=== PATIENT | female | born 1960 | race Caucasian/White ===

== ENCOUNTER → 2024-07-01 | Outpatient (CLI) | payer OTHER, SELFPAY ==
--- NOTE | 2024-07-01 15:45 | CT_ITS ---
PROCEDURE: LOW DOSE CT LUNG SCREENING (CTLUNGSCREEN), 07/01/2024 REASON FOR EXAM: SMOKER TECHNIQUE: Low dose CT (LDCT) chest was performed without contrast. Multiplanar reformats and MIP reconstructions were generated. RADIATION DOSE SUMMARY: CTDlvol: 3.02 mGy DLP: 95.91 mGycm One or more dose reduction techniques were used (e.g., Automated exposure control, adjustment of the mA and/or kV according to patient size, use of iterative reconstruction technique). COMPARISON: None FINDINGS: Note that evaluation of the vasculature, terry, and soft tissues is limited in the absence of IV contrast. Heart/pericardium:Dense mitral annular calcification. Mild/moderate but multivessel coronary atherosclerosis and/or stents. Aorta: Mild calcific atherosclerosis.. Pulmonary arteries: Unremarkable. Lymph nodes: Precarinal node, subcarinal node, 14 mm short axis. 10 mm short axis. Additional prominent but nonenlarged mediastinal nodes. . Lungs/pleura: Mild focal subpleural cystic changes in the anterior bilateral upper lobes with mild adjacent reticulation/ground-glass. Minimal dependent reticulation/ground-glass greatest in the subpleural RIGHT lower lobe. 10 x 8 mm nodule in the subpleural RIGHT lower lobe, posterior costophrenic sulcus demonstrates a central calcification suggesting a reflects a calcifying granuloma (series 2 image 163). Additional granulomas. 3 mm subpleural LEFT upper lobe nodule (image 101). No architectural distortion or diya honeycombing. Airways: Unremarkable. No bronchiectasis. Chest wall: Small LEFT lobe thyroid nodules.. Upper abdomen: LEFT lobe hepatic cyst.. Musculoskeletal: Demineralization. Degenerative changes of the LEFT shoulder. Multilevel spondylosis. Mild scoliosis may be positional.. CT/Low Dose CT Lung Screening IMPRESSION: 1. Lung-RADS category: 2S (benign appearance or behavior, <1% chance of maligna ncy); continue annual screening with LDCT. 2. Other clinically significant or potentially significant non-lung cancer find ings: Present, as below: 3. Findings suggestive of a chronic interstitial abnormality. The appearance i s not typical of emphysema although there may be component of background emphysema. Consider pulmonology consultation. Pattern is most suggestive of an alternative diagnosis to UIP by ATS criteria. 4. Mild mediastinal lymphadenopathy, nonspecific and potentially reactive in th e absence of known malignancy. Correlate with medical history and follow-up as indicated. 5. Additional description as above. Recommendations per [employer]. Lung CT Screening Reporting and Data System (Lung-RADS) v. 2022 Reading Location: [id number]
== END | disposition home or self-care (01) ==
LOC: CT 15:39
PROVIDERS: PCP Family Medicine; Referring Provider Nurse Practitioner Acute Care; Visit Provider Nurse Practitioner Acute Care
DX: Z12.2 Encounter for screening for malignant neoplasm of respiratory organs (principal); F17.210 Nicotine dependence, cigarettes, uncomplicated
CPT/HCPCS: 71271

== ENCOUNTER → 2024-10-05 | Outpatient (CLI) | payer OTHER, SELFPAY ==
--- OUTSIDE RECORDS SUMMARY | 2024-10-05 07:22 | XMS RPT_ITS | CCD ---
Author Organization [facility] CliniSytn Care Team Providers Care Developer Programmer Analyst Name Role Phone HILLS, GEREMIAS Consulting Unavailable TROY, GEREMIAS Attending Unavailable TROY, GEREMIAS Admitting Unavailable TROY, GEREMIAS Primary Care Unavailable PROVIDER, UNKNOWN Consulting Unavailable TROY, GEREMIAS Primary Care Unavailable TROY, GEREMIAS Consulting Unavailable TROY, GEREMIAS Attending Unavailable TROY, GEREMIAS Admitting Unavailable PROVIDER, UNKNOWN Consulting Unavailable TROY, GEREMIAS Consulting Unavailable TROY, GEREMIAS Primary Care Unavailable TROY, GEREMIAS Attending Unavailable TROY, GEREMIAS Admitting Unavailable PROVIDER, UNKNOWN Consulting Unavailable TROY, GEREMIAS Consulting Unavailable TROY, GEREMIAS Attending Unavailable TROY, GEREMIAS Admitting Unavailable TROY, GEREMIAS Primary Care Unavailable PROVIDER, UNKNOWN Consulting Unavailable TROY, GEREMIAS Consulting Unavailable TROY, GEREMIAS Attending Unavailable TROY, GEREMIAS Admitting Unavailable TROY, GEREMIAS Primary Care Unavailable PROVIDER, UNKNOWN Consulting Unavailable TROY, GEREMIAS Attending Unavailable TROY, GEREMIAS Admitting Unavailable TROY, GEREMIAS Primary Care Unavailable TROY, GEREMIAS Consulting Unavailable PROVIDER, UNKNOWN Consulting Unavailable TROY, GEREMIAS Attending Unavailable TROY, GEREMIAS Admitting Unavailable TROY, GEREMIAS Primary Care Unavailable TROY, GEREMIAS Consulting Unavailable PROVIDER, UNKNOWN Consulting Unavailable Gilbert LACTATION SPECIALIST-C, Melina Attending Provider Mando PA-C, Geremias Primary Care Provider [phone] Montrose PA-C, Geremias Referring Provider Gilbert LACTATION SPECIALIST-C, Melina Referring Provider Gilbert LACTATION SPECIALIST, Melina Attending Unavailable Montrose PA, Geremias Referring Unavailable Montrose PA, Geremias Primary Care Unavailable Gilbert LACTATION SPECIALIST, Melina Referring Unavailable Gilbert LACTATION SPECIALIST, Melina Attending Unavailable Montrose PA, Geremias Primary Care Unavailable Gilbert LACTATION SPECIALIST, Melina Referring Unavailable Gilbert LACTATION SPECIALIST, Melina Attending Unavailable Montrose PA, Greemias Primary Care Unavailable Montrose Geremias LANGSTON Primary Care Unavailable Gilbert LACTATION SPECIALIST, Melina Attending Unavailable Montrose Geremias LANGSTON Referring Unavailable Medications Current Medications Medication Drug Class(es) Dates Sig (Normalized) Sig (Original) [id number] 200 actuat albuterol 0.09 mg/actuat metered dose inhaler (1 source) beta2-Adrenergic Agonist Start: 06-05-2024 Albuterol Sulfate (Ventolin Hfa) 90 mcg/actuation HFA aerosol inhaler Active 2 NMA INHALATION Q4H as needed for shortness of breath or wheezing June 05, 2024 12:00am alendronic acid 70 mg oral tablet (1 source) Bisphosphonate Start: 06-05-2024 take 1 tablet by mouth every week Alendronate 70 mg tablet Active 70 mg PO EVERY WEEK June 05, 2024 12:00am fexofenadine hydrochloride 180 mg oral tablet (1 source) Histamine-1 Receptor Antagonist Start: 06-05-2024 take 1 tablet by mouth every twenty-four hours Fexofenadine (Rossana Allergy) 180 mg tablet Active 180 mg PO Q24H June 05, 2024 12:00am fluticasone propionate 0.05 mg/actuat metered dose nasal spray (2 sources) Corticosteroid Start: 06-05-2024 End: 07-28-2024 Fluticasone Propionate 50 mcg/actuation spray,suspension Active 2 NMA INTRANASAL DAILY 16 July 28, 2024 1:41pm 12 hr guaiFENesin 1200 mg extended release oral tablet (1 source) Start: 07-28-2024 take 1 tablet by mouth every twelve hours Guaifenesin 1,200 mg tablet extended release 12hr Active 1200 mg PO Q12H 60 July 28, 2024 12:00am levothyroxine sodium 0.15 mg oral tablet (1 source) l-Thyroxine Start: 06-05-2024 take 1 tablet by mouth once daily Levothyroxine 150 mcg tablet Active 150 ug PO daily June 05, 2024 12:00am metroNIDAZOLE (1 source) Nitroimidazole Antimicrobial Start: 07-28-2024 Metronidazole 1 % gel Active TOPICAL daily July 28, 2024 12:00am Problems Problem Classification Problem Date Documented Da te Episodic/Chronic Asthma (1 source) Unspecified asthma, uncomplicated; Translations: [Unspecified asthma, uncomplicated] Onset: 07-28-2024 Chronic Disorders of lipid metabolism (2 sources) Hyperlipidemia, unspecified; Translations: [Hyperlipidemia, unspecified] Onset: 01-09-2024 Chronic Osteoporosis (1 source) Senile osteoporosis; Translations: [Age-related osteoporosis without current pathological fracture] 06-05-2024 Chronic Other lower respiratory disease (3 sources) Chronic cough; Translations: [Chronic cough] Onset: 07-28-2024 06-05-2024 Episodic Other lower respiratory disease (4 sources) Other nonspecific abnormal finding of lung field; Translations: [Ground glass opacity present on imaging of lung] Onset: 07-28-2024 07-28-2024 Episodic Other screening for suspected conditions (not mental disorders or infectious disease) (3 sources) Encounter for screening for diabetes mellitus; Translations: [Encounter for screening for malignant neoplasm of respiratory organs] Onset: 01-09-2024 Episodic Other upper respiratory disease (1 source) Seasonal allergy; Translations: [Other seasonal allergic rhinitis] 06-05-2024 Chronic Substance-related disorders (3 sources) Cigarette smoker ; Translations: [Nicotine dependence, cigarettes, uncomplicated] Onset: 06-11-2024 06-05-2024 Chronic Thyroid disorders (4 sources) Hypothyroidism, unspecified; Translations: [Hyperthyroidism] Onset: 03-14-2023 06-05-2024 Chronic Results Test Name Value Interpretation Reference Range Facility Pulmonary Visit Reporton Pulmonary Visit Report [facility] Pulmonary Medicine of [address] [place] [address] OFFICE VISIT Date of Service: 07/28/24 MR#: [id number] Acct: [id number] Name: SOURAV HALE Rep #: [id number] : 1960 Provider: VIET Hunt Age/Sex: 63/F Location: [facility].PMW Status: Signed Assessment and Plan Assessment and Plan (1) Ground glass opacity present on imaging of lung: Status: Acute Plan: LDCT showed a 1 cm area of groundglass opacity. There was some subsolid features. Also a 3 mm nodule noted. Possible interstitial lung disease. Ordering diagnostic CT of the chest in 6 months. Return to the office when test results are available for review. (2) Chronic cough: Status: Chronic Plan: NIOX procedure performed in the office today returned within normal limits. This indicates that the patient does not require the use of an inhaled corticosteroid, nor systemic corticosteroids. The patient has been asked to resume fluticasone. I explained that the Afrin she has been using can be harmful and addictive. She conveys understanding. Also placing her on Mucinex to aid in pulmonary toileting. If these 2 medications are not effective in helping to reduce the frequency of the coughing and the consistency of the mucus, the patient has been asked to call the office for an additional office visit. She conveys understanding and is agreeable with this plan. (3) Seasonal allergies: Status: Acute Plan: Deteriorated. Continue Rossana. If Mucinex and Flonase do not control symptoms consider adding Singulair. Orders: Orders NIOX Today R05.3 - Chronic cough Chest without Contrast 12/31/24 R91.8 - Other nonspecific abnormal finding of lung field Medications: New guaifenesin ER 1,200 mg PO Q12H 60 tabs 6RF R91.8 - Other nonspecific abnormal finding of lung field Refilled fluticasone propionate 50 mcg/actuation 2 sprays intranasal DAILY 16 grams 3RF J45.909 - Unspecified asthma, uncomplicated Plan Details Additional Comments: This note was generated with [employer] dictation software. It may contain incorrect words, spelling, and punctuation that were not noted in checking the note before signing. Follow Up: 01/18/25 HPI 1 M FU Chief Complaint: Test results HPI Comments Details: This patient presents to the office today to discuss test results. She is ambulatory and currently on room air. She has not recently been seen in the ED or urgent care for any respiratory illness. She has not required any antibiotics or prednisone for any breathing problems. She is a current smoker. She is smoking 1 pack/day. She previously followed with a hedge fund trader for nodules, however this last occurred back in 2013. She has utilized the albuterol rescue inhaler prescribed at her last office visit for cough. She admits that she did not find it to be very effective in reducing the frequency of her cough. She was utilizing fluticasone nasal spray as prescribed, and admits that while using it it seemed to be helpful. However, once that she completed the bottle she did not refill it. She has since noticed an increase in postnasal drainage and moist cough. She does have shortness of breath on exertion. She states that she is not sure why. She has a daily cough that is productive of clear-colored sputum. She reports that it is thick. She denies any hemoptysis. She denies any wheezing, chest tightness, chest pain or palpitations. She has not had any fever, chills or body aches. Test results personally viewed the patient: Low-dose CT lung screen completed on July 01, 2024. Minimal dependent reticular/groundglass greatest in the subpleural right lower lobe measuring 10 x 8 mm. Several calcified granulomas. 3 mm subpleural left upper lobe nodule. Recommendation is to continue screening with LDCT in 12 months. Intake Vital Signs 06/05/24 09:14 07/28/24 08:27 Height 5 ft 2 in 5 ft 2 in Weight: 160 lb 159 lb BMI 29.2 29.0 BP 155/85 H 139/82 H Blood Pressure Location Lt brachial Lt brachial Position Sitting Sitting Respiration 18 16 Pulse 89 94 Pulse Source Monitor NIBP Temp 97.5 F L 97.5 F L Temperature Source Temporal Artery Temporal Artery Pulse Oximetry (%) 96 98 Oxygen Delivery Method room air room air Intake Visit Reasons: 1 M FU Length Control Tester Required: No DME Vendor: N/a Accompanied by: Self Is patient in pain?: No Allergies No Known Allergies Allergy (Unverified 07/28/24 13:12) Medications ???Medication ???Instructions ???Recorded ???Confirmed ???Type albuterol sulfate 90 mcg/actuation 2 inh inhalation Q4H PRN shortne ss 06/05/24 07/28/24 Rx aerosol inhaler (Ventolin HFA) of breath or wheezing #18 grams alendronate 70 mg tablet 70 mg PO QWEEK 06/05/24 07/28/24 H istory fe (more content not included)... Normal [facility] Low Dose CT Lung Screeningon 07-01-[address] Lung Screening [facility] Imaging Services [address] [place], [place] [id number] Low Dose CT Lung Screening MR#: [id number] Acct: [id number] Name: ALEXIASOURAV KAUR TJ Rep #: [id number] : 1960 F 63 From: Jordan Guo MD PCP: Geremias Gilmore PA-C Status: [facility] CLI Study: Low Dose CT Lung Screening Date of Exam: 07/01 Exam# [id number] Ordering Dr: Melina Hunt LACTATION SPECIALIST LACTATION SPECIALIST-C PROCEDURE: LOW DOSE CT LUNG SCREENING (CTLUNGSCREEN), 07/01/2024 REASON FOR EXAM: SMOKER TECHNIQUE: Low dose CT (LDCT) chest was performed without contrast. Multiplanar reformats and MIP reconstructions were generated. RADIATION DOSE SUMMARY: CTDlvol: 3.02 mGy DLP: 95.91 mGycm One or more dose reduction techniques were used (e.g., Automated exposure control, adjustment of the mA and/or kV according to patient size, use of iterative reconstruction technique). COMPARISON: None FINDINGS: Note that evaluation of the vasculature, terry, and soft tissues is limited in the absence of IV contrast. Heart/pericardium:Den se mitral annular calcification. Mild/moderate but multivessel coronary atherosclerosis and/or stents. Aorta: Mild calcific atherosclerosis.. Pulmonary arteries: Unremarkable. Lymph nodes: Precarinal node, subcarinal node, 14 mm short axis. 10 mm short axis. Additional prominent but nonenlarged mediastinal nodes. . Lungs/pleura: Mild focal subpleural cystic changes in the anterior bilateral upper lobes with mild adjacent reticulation/ground-g lass. Minimal dependent reticulation/ground-g lass greatest in the subpleural RIGHT lower lobe. 10 x 8 mm nodule in the subpleural RIGHT lower lobe, posterior costophrenic sulcus demonstrates a central calcification suggesting a reflects a calcifying granuloma (series 2 image 163). Additional granulomas. 3 mm subpleural LEFT upper lobe nodule (image 101). No architectural distortion or diya honeycombing. Airways: Unremarkable. No bronchiectasis. Chest wall: Small LEFT lobe thyroid nodules.. Upper abdomen: LEFT lobe hepatic cyst.. Musculoskeletal: Demineralization. Degenerative changes of the LEFT shoulder. Multilevel spondylosis. Mild scoliosis may be positional.. CT/Low Dose CT Lung Screening IMPRESSION: 1. Lung-RADS category: 2S (benign appearance or behavior, <1% chance of malignancy); continue annual screening with LDCT. 2. Other clinically significant or potentially significant non-lung cancer findings: Present, as below: 3. Findings suggestive of a chronic interstitial abnormality. The appearance is not typical of emphysema although there may be component of background emphysema. Consider pulmonology consultation. Pattern is most suggestive of an alternative diagnosis to UIP by ATS criteria. 4. Mild mediastinal lymphadenopathy, nonspecific and potentially reactive in the absence of known malignancy. Correlate with medical history and follow-up as indicated. 5. Additional description as above. Recommendations per [employer]. Lung CT Screening Reporting and Data System (Lung-RADS) v. 2021 Reading Location: [id number] CC: VIET Hunt; ANGELA Gilmore Key Carrier: Signed Normal [facility] Pulmonary Visit Reporton Pulmonary Visit Report [facility] Pulmonary Medicine of [address] [place] [address] OFFICE VISIT Date of Service: 06/05/24 MR#: [id number] Acct: [id number] Name: SOURAV HALE Rep #: [id number] : 1960 Provider: VIET Hunt Age/Sex: 63/F Location: [facility].PMW Status: Signed Assessment and Plan Assessment and Plan (1) Chronic cough: Status: Chronic Plan: Of unclear etiology. NIOX procedure performed in the office today, returned within normal limits. This indicates that the patient does not require a steroid inhaler or systemic corticosteroids. She does report a postnasal drip, therefore we will try to control the postnasal drip with an fnii-iuq-cfleofl nasal steroid. I have asked her to hold off on the nasal decongestant she has been taking. Follow-up in 1 month to evaluate response. I have also provided her with an order for an albuterol rescue inhaler. I instructed her to utilize 2 puffs every 4-6 hours as needed for cough. When she returns to the office in 1 month we will evaluate how frequently she utilize the albuterol and if it was effective. (2) Smoking greater than 40 pack years: Status: Chronic Plan: Encourage complete smoking cessation. She is appropriate for LDCT. Ordered accordingly. Follow-up in 1 month to discuss test results. Orders: Orders Low Dose CT Lung Screening Today F17.200 - Nicotine dependence, unspecified, uncomplicated, F17.210 - Nicotine dependence, cigarettes, uncomplicated Medications: New albuterol sulfate 90 mcg/actuation (Ventolin HFA) 2 inhalations inhalation Q4H PRN 18 grams 11RF shortness of breath or wheezing fluticasone propionate 50 mcg/actuation 2 sprays intranasal DAILY 16 grams 3RF J45.909 - Unspecified asthma, uncomplicated Plan Details Follow Up: 1 Month HPI CHRONIC COUGH Chief Complaint: Cough HPI Comments Details: This patient presents to the office today for initial consultation regarding concern for chronic cough. She is ambulatory and currently on room air. The patient reports that she has dealt with a chronic cough for several years. She states that the cough occurs daily and is moist sounding. It is often productive of thick clear sputum. It does not seem to be different according to seasons. She does believe that it is aggravated by humid weather. She reports using cough drops constantly but is not sure if they are helpful. She has shortness of breath on exertion. She has chronic nasal congestion, for which she uses a nightly nasal decongestant spray. She has never been prescribed an albuterol rescue inhaler. She denies any difficulty with wheezing, chest tightness, chest pain or palpitations. She has not had any fever, chills or body aches. She is a current smoker. She is smoking 1 pack/day. She previously followed with a hedge fund trader for nodules, however this last occurred back in 2013. Pulmonary function test completed at [facility] in March was normal. 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 Past medical family history significant for: Mother is currently living at the age of 85 and has leukemia. Father in 2016 due to kidney cancer. She has 4 sisters, all have good health. She has 3 sons, the oldest son had a myocardial infarction at a young age. The other 2 sons have good health. Intake Vital Signs 06/05/24 09:14 Height 5 ft 2 in Weight: 160 lb BMI 29.2 BP 155/85 H Blood Pressure Location Lt brachial Position Sitting Respiration 18 Pulse 89 Pulse Source Monitor Temp 97.5 F L Temperature Source Temporal Artery Pulse Oximetry (%) 96 Oxygen Delivery Method room air Intake Visit Reasons: CHRONIC COUGH Length Control Tester Required: No Accompanied by: Self Allergies No Known Allergies Allergy (Unverified 06/05/24 09:20) Medications ???Medication ???Instructions ???Recorded ???Confirmed ???Type albuterol sulfate 90 mcg/actuation 2 inh inhalation Q4H PRN shortne ss 06/05/24 06/05/24 Rx aerosol inhaler (Ventolin HFA) of breath or wheezing #18 grams alendronate 70 mg tablet 70 mg PO QWEEK 06/05/24 06/05/24 H istory fexofenadine 180 mg tablet 180 mg PO Q24H 06/05/24 06/05/24 H istory (Rossana Allergy) fluticasone propionate 50 2 spray intranasal DAILY #16 grams 06/05/24 06/05/24 Rx mcg/actuation nasal spray,suspension levothyroxine 150 mcg tablet 150 mcg PO QDAY 06/05/24 06/05/24 History PFSH Medical History (Updated 06/05/24 @ 09:47 by Melina Hunt LACTATION SPECIALIST, LACTATION SPECIALIST-C) Age related osteoporosis Hyperthyroidism Seasonal allergies Surgical History (Updated 06/05/24 @ 09:22 by Shanon Quiles LPN) H/O tubal ligation Family History (Updated 06/05/24 @ 09:24 by Shanon Quiles LPN) Mother Leukemia Fat (more content not included)... Normal [facility] PULMONARY FUNCTION STUDYon 0 03-22-2024 PULMONARY FUNCTION STUDY [facility] PULMONARY FUNCTION TEST NAME ACCOUNT SEX AGE VISIT DATE ROOM PT MEDICAL REC. # NUMBER TYPE SOURAV HALE [id number] F 63 03/05/2024 2 70090 DATE OF : 1960 DICTATING PHYSICIAN: Jeb Berrios The FEV1 is 2.46 liters or 109% of predicted with a ratio of 83%. Total lung capacity is normal. The RV/TLC ratio and diffusion capacity are normal. IMPRESSION: This is a normal study. There is no evidence of obstruction or restriction or airway reactivity. Dictated By: Jeb Berrios MD 03/11/24 13:22 JOB #: [id number] Transcribed By: am 03/11/24 13:34 Electronically signed by: Iva Berrios M.D. 03/22/24 22:21 SOURAV HALE Page 1 of 1 Normal [facility] CMP with eGFRon 01-24-2024 AGE 63 years Normal [facility] Comment on above: Performed By: #### 2 06623 #### [facility],[address] [place] [address] 23525 Albumin [Mass/Vol] 4.1 g/dL Normal 3.4 - 5.0 [facility] Comment on above: Performed By: #### 2 26052 #### [facility],[address] [place] [address] 63747 Albumin/Globulin [Mass ratio] 1.2 {ratio} Normal 0.9 - 1.6 [facility] Comment on above: Performed By: #### 2 26644 #### [facility],[address] [place] [address] 23211 ALK PHOS 92 U/L Normal 46 - 116 [facility] Comment on above: Performed By: #### 2 48601 #### [facility],[address] [place] [address] 05026 ALT [Catalytic activity/Vol] 17 U/L Normal 16 - 63 [facility] Comment on above: Performed By: #### 2 90869 #### [facility],[address] [place] [address] 28331 Anion gap [Moles/Vol] 12 mmol/L Normal 10 - 20 [facility] Comment on above: Performed By: #### 2 05966 #### [facility],[address] [place] [address] 23345 AST [Catalytic activity/Vol] 21 U/L Normal 13 - 39 [facility] Comment on above: Performed By: #### 2 98224 #### [facility],[address] [place] [address] 03296 B/C RATIO 18 ratio Normal 0 - 30 [facility] Comment on above: Performed By: #### 2 51183 #### [facility],[address] [place] [address] 45737 Bilirubin [Mass/Vol] 0.4 mg/dL Normal 0.2 - 1.0 [facility] Comment on above: Performed By: #### 2 91838 #### [facility],[address] [place] [address] 78134 Calcium [Mass/Vol] 9.2 mg/dL Normal 8.5 - 10.1 [facility] Comment on above: Performed By: #### 2 69846 #### [facility],[address] [place] [address] 61468 Chloride [Moles/Vol] 100 mmol/L Normal 98 - 107 [facility] Comment on above: Performed By: #### 2 98797 #### [facility],[address] [place] [address] 09586 CMP with eGFR Normal [facility] Comment on above: Result Comment: COMP REHENSIVE METABOLIC PANEL Performed By: #### 2 11901 #### [facility],[address] [place] [address] 24749 CO2 [Moles/Vol] 29.5 mmol/L Normal 21.0 - 32.0 [facility] Comment on above: Performed By: #### 2 06313 #### [facility],[address] [place] [address] 84197 Creatinine [Mass/Vol] 0.67 mg/dL Normal 0.55 - 1.02 [facility] Comment on above: Performed By: #### 2 95766 #### [facility],[address] [place] [address] 11493 GFR/1.73 sq M.predicted among non-blacks MDRD (S/P/Bld) [Vol rate/Area] mL/min/{1.73_m2} Normal 60 - 999 [facility] Comment on above: Performed By: #### 2 70669 #### [facility],[address] [place] [address] 96200 Result Comment: ACCO RDING TO THE NATIONAL KIDNEY DISEASE EDUCATION PROGRAM(NKDE), A NORMAL eGFR IS A VALUE GREATER THAN OR EQUAL TO 60 ML/MIN/1.73 SQ METERS. CHRONIC KIDNEY DISEASE: <60mL/MIN/1.73 SQ METERS KIDNEY FAILURE: <15mL/MIN/1.73 SQ METERS THIS TEST SHOULD ONLY BE USED FOR PATIENTS 18 YEARS OF AGE AND OLDER. Globulin (S) [Mass/Vol] 3.3 g/dL Normal 1.5 - 3.8 [facility] Comment on above: Performed By: #### 2 72315 #### [facility],[address] [place] [address] 12367 Glucose [Mass/Vol] 100 mg/dL Normal 74 - 106 [facility] Comment on above: Performed By: #### 2 08077 #### [address] [address] Potassium [Moles/Vol] 4.1 mmol/L Normal 3.5 - 5.1 [facility] Comment on above: Performed By: #### 2 08504 #### [facility],[address] [place] [address] 44783 Protein [Mass/Vol] 7.4 g/dL Normal 6.4 - 8.2 [facility] Comment on above: Performed By: #### 2 84297 #### [facility],[address] [place] [address] 25295 Sodium [Moles/Vol] 137 mmol/L Normal 136 - 145 [facility] Comment on above: Performed By: #### 2 93492 #### [facility],[address] [place] [address] 42647 Urea nitrogen [Mass/Vol] 12 mg/dL Normal 7 - 18 [facility] Comment on above: Performed By: #### 2 81097 #### [address] [address] LIPID PROFILEon 01-24-2024 Cholesterol [Mass/Vol] 244 mg/dL High 0 - 240 [facility] Comment on above: Performed By: #### 2 60028 #### [facility],[address] [place] [address] 51181 Cholesterol in HDL [Mass/Vol] 58 mg/dL Normal 40 - 60 [facility] Comment on above: Performed By: #### 2 94912 #### [facility],[address] [place] [address] 98382 Cholesterol in LDL [Mass/Vol] 169 mg/dL High 0 - 129 [facility] Comment on above: Performed By: #### 2 53319 #### [facility],[address] [place] [address] 62868 Cholesterol.total/C holesterol in HDL [Mass ratio] 4.2 {ratio} Normal 0.0 - 5.0 [facility] Comment on above: Performed By: #### 2 91447 #### [facility],[address] [place] [address] 94006 Lipid 1996 panel Normal [facility] Comment on above: Result Comment: LIPI D PROFILE Performed By: #### 2 71999 #### [facility],[address] [place] [address] 70598 Triglyceride [Mass/Vol] 87 mg/dL Normal 0 - 150 [facility] Comment on above: Performed By: #### 2 34561 #### [facility],[address] [place] [address] 62408 TSHon 01-24-2024 TSH Qn 2.86 m[IU]/L Normal 0.35 - 3.74 [facility] Comment on above: Performed By: #### 2 66441 #### [facility],[address] [place] [address] 13822 3D MAMM BILAT SCREENon 01-08 3D MAMM BILAT SCREEN [place] [address] Patient: SOURAV HALE Phone#: : 1960 Age: 63 Gender: F Pt. Type: Out Account: [id number] Location: 052 Ordering: [place] Exam Date: 01/09/2024/11:56 Family Phys: Charge Code: [id number] Physician: [place] Order #: [id number] Dose#: PROCEDURE: BILATERAL SCREENING BREAST TOMOSYNTHESIS MAMMOGRAM WITH CAD COMPARISON: [facility], 3D BILAT SCREEN, 06/07/2021, 15:04. [facility], 3D BILAT SCREEN, 06/29/2022, 15:02. INDICATIONS: Screening. BREAST COMPOSITION: Heterogeneously dense, which may obscure small masses. FINDINGS: DIAGNOSTIC CATEGORY 1--NEGATIVE NO CHANGE FROM COMPARISON ASSESSMENT. RIGHT BREAST: No significant suspicious finding. Scattered benign-appearing calcifications are present. No significant change has occurred. LEFT BREAST: No significant suspicious finding. Scattered benign-appearing calcifications are present. No significant change has occurred. RECOMMENDATIONS: ROUTINE MAMMOGRAM AND CLINICAL EVALUATION IN 12 MONTHS. PLEASE NOTE: A NORMAL MAMMOGRAM DOES NOT EXCLUDE THE POSSIBILITY OF BREAST CANCER. A CLINICALLY SUSPICIOUS PALPABLE LUMP SHOULD BE BIOPSIED. THIS FACILITY UTILIZES A REMINDER SYSTEM TO ENSURE THAT ALL PATIENTS RECEIVE REMINDER LETTERS FOR APPOINTMENTS. THIS INCLUDES REMINDERS FOR ROUTINE MAMMOGRAMS, DIAGNOSITC MAMMOGRAMS, OR OTHER BREAST IMAGING INTERVENTIONS WHEN APPROPRIATE. THIS PATIENT WILL BE PLACED IN THE APPROPRIATE REMINDER SYSTEM. Dictated by: Whit Lawton MD on 01/09/2024 at 17:30 Approved by: Whit Lawton MD on 01/09/2024 at 17:38 Normal [facility] BONE DENSITY STUDYon 024 Bone density scan [place] [address] Patient: SOURAV HALE Phone#: : 1960 Age: 63 Gender: F Pt. Type: Out Account: [id number] Location: 052 Ordering: [place]EMI[place] Exam Date: 01/09/2024/12:07 Family Phys: Charge Code: [id number] Physician: [place] Order #: [id number] Dose#: PROCEDURE: BONE DENSITY STUDY TECHNIQUE: Lumbar vertebral and proximal femoral dual-energy X-ray absorptiometry (DXA) was performed on a central RocketBux device. SPINE ANALYSIS RESULTS: Average lumbar bone mineral density (BMD) (g/cm2): 0.790 Lumbar T-score (standard deviation relative to young adult mean BMD): -3.3 Lumbar Z-score (standard deviation relative to age matched control group): -2.1 SPINE CLASSIFICATION: Osteoporosis (T-score < -2.5). HIP ANALYSIS RESULTS: Left femoral bone mineral density (BMD) (g/cm2): 0.801 Right femoral bone mineral density (BMD) (g/cm2): 0.780 Femur T-score (standard deviation relative to young adult mean BMD): -1.7 Femur Z-score (standard deviation relative to age matched control group): -0.8 HIP CLASSIFICATION (World Health Organization): Osteopenia (T-score -1.0 to -2.5). Note: The 2007 International Society for Clinical Densitometry (ISCD) Official Positions state that osteoporosis in lucius-menopausal and post-menopausal women and in men age 50 and older may be diagnosed if the T-score of the lumbar spine, total hip, or femoral neck is -2.5 or less. Hip BMD is reported from the femoral neck or total proximal femur whichever is lowest. In pre-menopausal women and in men younger than age 50, T-scores may be used but Z-scores are preferred. In this patient group, a Z-score of -2.0 or lower is defined as below the expected range for age. FRAX is a computer-based algorithm which uses easily obtained clinical risk factors combined with femoral neck BMD or T-score to estimate an individual 10-year fracture probability. FRAX with BMD predicts fracture risk better than clinical risk factors or BMD alone. It is not appropriate to use FRAX to monitor treatment response. ADDITIONAL FINDINGS: FRAX: 10 year probability of fracture Major osteoporotic fracture: 19.1% Hip fracture: 5.0% Dictated by: Lyndsay Mccann MD on 01/09/2024 at 13:07 Continued Report - Page 2 of 2 Patient: SOURAV HALE Phone#: : 1960 Age: 63 Gender: F Pt. Type: Out Account: [id number] Location: 2 Ordering: [place]EREMI[place] Exam Date: 01/09/2024/12:07 Family Phys: Charge Code: [id number] Physician: [place] Order #: [id number] Dose#: Approved by: Lyndsay Mccann MD on 01/09/2024 at 13:08 Normal [facility] Comprehensive metabolic 2000 panelon 11-28-2021 Albumin [Mass/Vol] 4.4 g/dL Normal 3.9-4.9 [facility] Comment on above: Order Comment: Speci men Type: BLOOD SPECIMEN Ordering Facility: [facility] Address: [address] [place] [address] Performed By: #### 2 4323-8 #### [facility] CLIA [id number] [address] [place] [address] [place] ALP [Catalytic activity/Vol] 90 U/L Normal 34-123 [facility] Comment on above: Order Comment: Speci men Type: BLOOD SPECIMEN Ordering Facility: [facility] Address: [address] [place] [address] Performed By: #### 2 4323-8 #### [facility] CLIA [id number] [address] [place] [address] [place] ALT [Catalytic activity/Vol] 17 U/L Normal 7-38 [facility] Comment on above: Order Comment: Speci men Type: BLOOD SPECIMEN Ordering Facility: [facility] Address: [address] [place] [address] Performed By: #### 2 4323-8 #### [facility] CLIA [id number] [address] [place] [address] [place] Anion gap [Moles/Vol] 16 mmol/L Normal 9-18 [facility] Comment on above: Order Comment: Speci men Type: BLOOD SPECIMEN Ordering Facility: [facility] Address: [address] [place] [address] Performed By: #### 2 4323-8 #### [facility] CLIA [id number] [address] [address] [place] AST [Catalytic activity/Vol] 19 U/L Normal 13-35 [facility] Comment on above: Order Comment: Speci men Type: BLOOD SPECIMEN Ordering Facility: [facility] Address: [address] [place] [address] Performed By: #### 2 4323-8 #### [facility] CLIA [id number] [address] [place] [address] [place] Bilirubin [Mass/Vol] 0.4 mg/dL Normal 0.2-1.3 [facility] Comment on above: Order Comment: Speci men Type: BLOOD SPECIMEN Ordering Facility: [facility] Address: [address] [place] [address] Performed By: #### 2 4323-8 #### [facility] CLIA [id number] [address] [place] [address] [place] Calcium [Mass/Vol] 9.2 mg/dL Normal 8.5-10.2 [facility] Comment on above: Order Comment: Speci men Type: BLOOD SPECIMEN Ordering Facility: [facility] Address: [address] [place] [address] Performed By: #### 2 4323-8 #### [facility] CLIA [id number] [address] [place] [id number] [place] Chloride [Moles/Vol] 99 mmol/L Normal 97-105 [facility] Comment on above: Order Comment: Speci men Type: BLOOD SPECIMEN Ordering Facility: [facility] Address: [address] [place] [address] Performed By: #### 2 4323-8 #### [facility] CLIA [id number] [address] [address] [place] CO2 [Moles/Vol] 22 mmol/L Normal 22-30 [facility] Comment on above: Order Comment: Speci men Type: BLOOD SPECIMEN Ordering Facility: [facility] Address: [address] [place] [address] Performed By: #### 2 4323-8 #### [facility] CLIA [id number] [address] [place] [address] [place] Creatinine [Mass/Vol] 0.62 mg/dL Normal 0.58-0.96 [facility] Comment on above: Order Comment: Speci men Type: BLOOD SPECIMEN Ordering Facility: [facility] Address: [address] [place] [address] Performed By: #### 2 4323-8 #### [facility] CLIA [id number] [facility] [place] [address] [place] ESTIMATED GLOMERULAR FILTRATION RATE 102 mL/min/1.73m??? Normal >=60 [facility] Comment on above: Order Comment: Speci men Type: BLOOD SPECIMEN Ordering Facility: [facility] Address: [address] [place], [place] [address] Result Comment: Aurea mated Glomerular Filtration Rate (eGFR) is calculated using the 2020 CKD-EPI creatinine equation. This equation utilizes serum creatinine, sex, and age as parameters. The creatinine assay has traceable calibration to isotope dilution-mass spectrometry. Refer to KDIGO guidelines for clinical interpretation. In patients with unstable renal function, e.g. those with acute kidney injury, the eGFR may not accurately reflect actual GFR. Performed By: #### 2 4323-8 #### [facility] CLIA [id number] [facility] [place] [address] [place] Glucose [Mass/Vol] 99 mg/dL Normal 74-99 [facility] Comment on above: Order Comment: Speci men Type: BLOOD SPECIMEN Ordering Facility: [facility] Address: [address] [place] [address] Result Comment: The [place] Diabetes Association (ADA) provides guidance for cutoff values for fasting glucose and random glucose. The ADA defines fasting as no caloric intake for at least 8 hours. Fasting plasma glucose results between 100 to 125 mg/dL indicate increased risk for diabetes (prediabetes). Fasting plasma glucose results greater than or equal to 126 mg/dL meet the criteria for diagnosis of diabetes. In the absence of unequivocal hyperglycemia, results should be confirmed by repeat testing. In a patient with classic symptoms of hyperglycemia or hyperglycemic crisis, random plasma glucose results greater than or equal to 200 mg/dL meet the criteria for diagnosis of diabetes. Reference: Standards of Medical Care in Diabetes 2016, [place] Diabetes Association. Diabetes Care. 2016.39(Suppl 1). Performed By: #### 2 4323-8 #### [facility] CLIA [id number] [address] [place] [address] [place] Potassium [Moles/Vol] 4.0 mmol/L Normal 3.7-5.1 [facility] Comment on above: Order Comment: Shandra avery Type: BLOOD SPECIMEN Ordering Facility: [facility] Address: [address] [place] [address] Performed By: #### 2 4323-8 #### [facility] CLIA [id number] [address] [place] [address] [place] Protein [Mass/Vol] 6.8 g/dL Normal 6.3-8.0 [facility] Comment on above: Order Comment: Shandra avery Type: BLOOD SPECIMEN Ordering Facility: [facility] Address: [address] [place] [address] Performed By: #### 2 4323-8 #### [facility] CLIA [id number] [address] [place] [address] [place] Sodium [Moles/Vol] 137 mmol/L Normal 136-144 [facility] Comment on above: Order Comment: Shandra avery Type: BLOOD SPECIMEN Ordering Facility: [facility] Address: [address] [place] [address] Performed By: #### 2 4323-8 #### [facility] CLIA [id number] [address] [place] [address] [place] Urea nitrogen [Mass/Vol] 9 mg/dL Normal 7-21 [facility] Comment on above: Order Comment: Speci men Type: BLOOD SPECIMEN Ordering Facility: [facility] Address: [address] [place] [address] Performed By: #### 2 4323-8 #### [facility] CLIA [id number] [facility] [place] [address] [place] [employer] [facility] Reporton 2021 [employer] [facility] Report . Pathology Reports Accession: Collected Date/Time: Received Date/Time: Pathologist: [id number] 06/05/2021 16:02 EDT 06/05/2021 18:00 EDT [employer] [facility] Report SPECIMEN: Specimen Description: Liquid Prep w/ HPV Specimen: Cervical Screening or Diagnostic: Screening RELEVANT HISTORY: LMP: NOT GIVEN [id number] SPECIMEN ADEQUACY: SATISFACTORY FOR EVALUATION ENDOCERVICAL/TRANSFOR MATIONAL ZONE COMPONENT PRESENT INTERPRETATION/RESULT S: NEGATIVE FOR INTRAEPITHELIAL LESION OR MALIGNANCY HIGH RISK HPV TESTING: High Risk HPV Typing: Negative HPV Types 16, 18, 31, 33, 35, 39, 45, 51, 52, 56, 58, 59, 66 and 68 DNA were undetectable or be low the pre-set threshold. The michaela High-Risk HPV DNA Test is not intended for use as a screening device for Pap normal women under age 30 and is not intended to substitute for regular Pap screening. The michaela High-Risk HPV DNA Test is designed to augment existing methods for the detection of cervical disease and should be used in conjunction with clinical information derived from [facility] diagnostic and screening tests, physical examinations and full medical history in accordance with appropriate patient management procedures. NOTE: A negative result does not preclude the presence of HPV infection because results depend on adequate specimen collection, absence of inhibitors and sufficient DNA to be detected. COMMENT: This Pap Test was successfully processed and evaluated with the assistance of the [employer] Prep Test Imaging System. Electronically Signed by Pathology report verified by [facility] Screened by: [place] Electronically signed by Urszula HOPKINS (ASCP) Sign-Out Date: 06/09/2021 15:18 Performing Lab: [facility], [address] [place] [address] [place] Disclaimer The Pap test is a screening test for cervical cancer. As evidenced by published data, it is sub ject to both inherent false negative and false positive results. Your patient's results should be interpreted in context with pertinent clinical history including gynecological examination. Normal [facility] ([place]) HPVon 06-09-2021 HPV Interp Normal See Interp HPVN [facility] ([place]) Comment on above: Order Comment: Order placed by AP_HPV_ORDER rule from [id number] Result Comment: High Risk HPV Typing: NEGATIVE HPV types 16, 18, 31, 33, 35, 39, 45, 51, 52, 56, 58, 59, 66 and 68 DNA were undetectable or below the pre-set threshold. The michaela High-Risk HPV DNA Test is not intended for use as a screening device for Pap normal women under age 30 and is not intended to substitute for regular Pap screening. The michaela High-Risk HPV DNA Test is designed to augment existing methods for the detection of cervical disease and should be used in conjunction with clinical information derived from other diagnostic and screening tests, physical examinations and full medical history in accordance with appropriate patient management procedures. NOTE: A negative result does not preclude the presence of HPV infection because results depend on adequate specimen collection, absence of inhibitors and sufficient DNA to be detected. See Interp HPVN Performed By: #### H PV #### [place] [address] HPV Source Cervix Normal [facility] ([place]) Comment on above: Order Comment: Order placed by AP_HPV_ORDER rule from [id number] Performed By: #### H PV #### [place] [id number] TSHon 10-05-2020 TSH Qn 0.21 m[IU]/L Low 0.40-4.50 [facility] Comment on above: Performed By: #### 8 99 #### [facility] [address], [address] [place] [id number] Test Lead Application Testing: Chadd Vargas MD Vital Signs Date Time Vital Sign Value Performing Clinician Reymundo estrada 07-28-2024 08:27-0400 [facility] 07-28-2024 08:27-0400 Body mass index (BMI) [Ratio] 29 kg/m2 Geremias J C Lads PA-C Work Phone: [facility] 07-28-2024 08:27-0400 Body temperature 97.5 [degF] Geremias Montrose PA-C Work Phone: [facility] 07-28-2024 08:27-0400 Body weight 72.12 kg Geremias J C Lads PA-C Work Phone: [facility] 07-28-2024 08:27-0400 Diastolic blood pressure 82 mm[Hg] Geremias J C Lads PA-C Work Phone: [facility] 07-28-2024 08:27-0400 Heart rate 94 /min Geremias J C Lads PA-C Work Phone: [facility] 07-28-2024 08:27-0400 Respiratory rate 16 /min Geremias J C Lads PA-C Work Phone: [facility] 07-28-2024 08:27-0400 SaO2% (BldA) [Mass fraction] 98 % Geremias J C Lads PA-C Work Phone: [facility] 07-28-2024 08:27-0400 Systolic blood pressure 139 mm[Hg] Geremias J C Lads PA-C Work Phone: [facility] 06-05-2024 09:14-0400 Body mass index (BMI) [Ratio] 29.2 kg/m2 Geremias J C Lads PA-C Work Phone: [facility] 06-05-2024 09:14-0400 Body temperature 97.5 [degF] Geremias J C Lads PA-C Work Phone: [facility] 06-05-2024 09:14-0400 Body weight 72.57 kg Geremias J C Lads PA-C Work Phone: [facility] 06-05-2024 09:14-0400 Diastolic blood pressure 85 mm[Hg] Geremias J C Lads PA-C Work Phone: [facility] 06-05-2024 09:14-0400 Heart rate 89 /min Geremias Hills PA-C Work Phone: [facility] 06-05-2024 09:14-0400 [facility] 18 [facility] 06-05-2024 09:14-0400 SaO2% (BldA) [Mass fraction] 96 % Geremias Montrose PA-C Work Phone: [facility] 06-05-2024 09:14-0400 Systolic blood pressure 155 mm[Hg] [facility] PA-C Work Phone: [facility] Encounters Encounter Date Encounter Type Care Provider Facility Start: 10-05-2024 ambulatory Melina Hunt LACTATION SPECIALIST Fac ility:[facility] Start: 07-28-2024 End: 07-28-2024 Patient encounter procedure Melina Hunt LACTATION SPECIALIST-C -[facility] Work Phone: Start: 07-28-2024 End: 07-28-2024 ambulatory Scandid PA-C Work Phone: [facility] Work Phone: Start: 07-01-2024 End: 07-01-2024 Patient encounter procedure Melina Hunt NP-C -[facility] Work Phone: Start: 07-01-2024 End: 07-01-2024 ambulatory Melina Hunt LACTATION SPECIALIST Facility:[facility] Start: 06-05-2024 End: 06-05-2024 Patient encounter procedure Melina Hunt LACTATION SPECIALIST-C -[facility] Work Phone: Start: 06-05-2024 End: 06-05-2024 ambulatory Geremias Montrose PA Facility:[facility] Start: 03-05-2024 End: 03-05-2024 ambulatory [facility] Start: 01-24-2024 End: 01-24-2024 ambulatory [facility] Start: 01-09-2024 End: 01-09-2024 ambulatory [facility] Start: 03-14-2023 End: 03-14-2023 ambulatory [facility] Start: 01-28-2023 End: 01-28-2023 [facility] Procedures Date Procedure Procedure Detail Performing Clinician Start: 07-01-2024 CT of chest Geremias pandya PA-C Work Phone: Plan of Treatment Date Care Activity Detail Author CT Chest WO contrast [facility] Payers Date Payer Category Payer Unknown [id number] 2024 Self-pay 2024 Unknown [id number] 1960 Unknown [id number] 2.16.8 [id number] 1960 Unknown [id number] 2.16.8 [id number] 1960 Unknown [id number] 2.16.8 [id number] 1960 Unknown [id number] 2.16.8 [id number] 1960 Unknown [id number] 2.16.8 [id number] 1960 Unknown [id number] 2.16.8 [id number] 1960 Unknown [id number] 2.16.8 [id number] Unknown Unknown [id number] 2.16.8 [id number] Unknown [id number] 2.16.8 [id number] Unknown [id number] 2.16.8 [id number] Unknown [id number] 2.16.8 [id number] Social History Date Type Detail Facility Start: [facility]-05-[facility] Start: 1960 Sex Assigned At Female [facility] Gender Identity Identifies as fe male gender (finding) [facility] Evaluation note 06-05-2024 Note Date & Type Note Facility 06-05-2024 Evaluation note Diagnosis Onset Date Resolution Chronic cough chronic June 05, 2024 9:13am Smoking greater than 40 pack years chronic June 05, 2024 9:13am Ground glass opacity present on imaging of lung acute July 28, 2024 1 :07pm [facility] [employer] [facility] Work Phone: Reason for referral (narrative) Note Date & Type Note Facility Reason for referral (narrative) No reason for referral information available [facility] Work Phone: Summary Purpose Family History No Family History Records Found Relationship Condition Age at Onset Recorded Date/T james mother Leukemia Unknown father Malignant neoplasm of kidney Unknown Advance Directives No Advanced Directives Records FoundNo Advanced Directives Records FoundNo Advanced Directives Records FoundNo Advanced Directives Records FoundNo Advanced Directives Records FoundNo Advanced Directives Records Found Chief Complaint and Reason for Visit Chief Complaint Admit Date CHRONIC COUGH June 05, 2024 9:13 am SMOKER July 01, 2024 3:3 2pm 1 M FU July 28, 2024 1:07p m Reason for Visit Admit Date Chronic cough June 05, 2024 9:13 am Smoking greater than 40 pack years June 05, 2024 9:13am Ground glass opacity present on imaging of lung July 28, 2024 1:07pm Additional Source Comments INFORMATION SOURCE (unrecogn ized section and content) DATE CREATED AUTHOR 01/01/2021 [facility] DATE CREATED AUTHOR AUTHOR'S ORGANIZ ATION 06/12/2021 [facility] ([place]) DATE CREATED AUTHOR AUTHOR'S ORGANIZ ATION 12/04/2021 [facility] DATE CREATED AUTHOR AUTHOR[facility]S OR[facility]IZ ATION [facility] DATE CREATED AUTHOR AUTHOR'S ORGANIZ ATION [facility] DATE CREATED AUTHOR AUTHOR'S ORGANIZ ATION 10/03/2024 [facility] Care Teams (unrecognized sec tion and content) Team Status: Active Member Role Status Dates Geremias Gilmore PA, PA-C Primary Care Provider Active Team Status: Inactive Member Role Status Dates Melina Hunt NP LACTATION SPECIALIST-C Attending Provider Active Start: June 05, 2024 End: June 05, 2024 Geremias Gilmore PA, PA-C Primary Care Provider Active Start: June 05, 2024 End: June 05, 2024 Geremias Gilmore PA, PA-C Referring Provider Active Start: June 05, 2024 End: June 05, 2024 Team Status: Inactive Member Role Status Dates Geremias Gilmore PA, PA-C Primary Care Provider Active Start: July 01, 2024 End: July 01, 2024 Melina Hunt NP, LACTATION SPECIALIST-C Attending Provider Active Start: July 01, 2024 End: July 01, 2024 Melina Hunt NP, LACTATION SPECIALIST-C Referring Provider Active Start: July 01, 2024 End: July 01, 2024 Team Status: Inactive Member Role Status Dates Geremias Mando PA, PA-C Primary Care Provider Active Start: July 28, 2024 End: July 28, 2024 Geremias Gilmore PA, PA-C Referring Provider Active Start: July 28, 2024 End: July 28, 2024 Melina Hunt NP, LACTATION SPECIALIST-C Attending Provider Active Start: July 28, 2024 End: July 28, 2024 Goals (unrecognized section and content) Goals may be documented in a n alternate section FOR RECORDS PERTAINING TO PATIENTS WHO ARE OR HAVE BEEN ENROLLED IN A CHEMICAL DEPENDENCY/SUBSTANCEABUSE PROGRAM, SOME INFORMATION MAY BE OMITTED. This clinical summary was aggregated from multiple sources. Caution should be exercised in using it in the provision of clinical care. This summary normalizes information from multiple sources, and as a consequence, information in this document may materially change the coding, format and clinical context of patient data. In addition, data may be omitted in some cases. CLINICAL DECISIONS SHOULD BE BASED ON THE PRIMARY CLINICAL RECORDS. [facility] [employer] provides no warranty or guarantee of the accuracy or completeness of information in this document.
--- NOTE | 2024-10-05 07:24 | CT_ITS ---
PROCEDURE: CHEST WITHOUT CONTRAST 10/05/2024 REASON FOR EXAM: GROUND GLASS Patient has a 1 year history of cough and shortness of breath. TECHNIQUE: Chest CT without contrast. Coronal and Sagittal reconstruction series were provided. One or more dose reduction techniques were used (e.g., Automated exposure control, adjustment of the mA and/or kV according to patient size, use of iterative reconstruction technique RADIATION DOSE SUMMARY: CTDlvol: 8.06 mGy DLP: 276.04 mGycm COMPARISON: Prior study dated July 01, 2024. FINDINGS: Hardware: None Lymph nodes: Small benign-appearing bilateral axillary lymph nodes. Heart and Vasculature: Atherosclerotic calcification of the aortic arch. The heart is nonenlarged. Coronary Artery Calcifications: Present Lungs and Airways: Minimal increased linear markings at the lung bases suggestive of scarring. Subpleural blebs are seen in the anterior aspect of both upper lobes suggestive of scarring. No focal infiltrate is seen. Calcified granuloma in the right lower lobe. Pleura: No pleural effusion. Upper Abdomen: Stable cyst in the left lobe of the liver. Bones: Degenerative changes of the thoracic spine. CT/Chest without Contrast IMPRESSION: Coronary artery calcification (CAC) is is present Scarring as described. Stable small mediastinal and axillary lymph nodes. Reading Location: [facility]
== END | disposition home or self-care (01) ==
PROVIDERS: PCP Family Medicine; Referring Provider Nurse Practitioner Acute Care; Visit Provider Nurse Practitioner Acute Care
DX: R91.8 Other nonspecific abnormal finding of lung field (principal)
CPT/HCPCS: 71250

== ENCOUNTER → 2025-01-18 | Outpatient (CLI) | payer OTHER, SELFPAY ==
[2025-01-18 07:53] LABS: Hematocrit 45.4 % (37-47); Hemoglobin 15.2 g/dL (12.0-15.0); Immature Granulocytes Count 0.060 X10^3/uL (0.0-0.0); Mean Corp Hgb Conc 33.5 g/dL (32-36); Mean Corpuscular Volume 87.0 fL (81-99); Mean Platelet Vol. 10.9 fl (6.2-12.0); NRBC Flagged by Analyzer 0 % (0-5); Platelet Count 292 K/mm3 (150-450); RBC Distribution Width CV 13.1 % (11.6-14.6); RBC Distribution Width SD 41.7 fl (35.1-43.9); Red Blood Count 5.22 M/mm3 (4.2-5.4); White Blood Count 8.9 K/mm3 (4.4-11.0)
--- OUTSIDE RECORDS SUMMARY | 2025-01-18 07:56 | XMS RPT_ITS | CCD ---
Author Organization [facility] Care Team Providers Care Rehab Services Aide Name Role Phone HILLS, GEREMIAS Consulting Unavailable CROPSEYVILLE, GEREMIAS Attending Unavailable CROPSEYVILLE, GEREMIAS Admitting Unavailable CROPSEYVILLE, GEREMIAS Primary Care Unavailable PROVIDER, UNKNOWN Consulting Unavailable HILLS, GEREMIAS Primary Care Unavailable CROPSEYVILLE, GEREMIAS Consulting Unavailable CROPSEYVILLE, GEREMIAS Attending Unavailable CROPSEYVIL[place], GEREMIAS Admitting Unavailable PROVIDER, UNKNOWN Consulting Unavailable CROPSEYVIL[place], GEREMIAS Consulting Unavailable CROPSEYVIL[place], GEREMIAS Primary Care Unavailable CROPSEYVILLE, GEREMIAS Attending Unavailable CROPSEYVILLE, GEREMIAS Admitting Unavailable PROVIDER, UNKNOWN Consulting Unavailable HILLS, GEREMIAS Consulting Unavailable HILLS, GEREMIAS Attending Unavailable HILLS, GEREMIAS Admitting Unavailable CROPSEYVILLE, GEREMIAS Primary Care Unavailable PROVIDER, UNKNOWN Consulting Unavailable HILLS, GEREMIAS Consulting Unavailable CROPSEYVIL[place], GEREMIAS Attending Unavailable HILLS, GEREMIAS Admitting Unavailable HILLS, GEREIMAS Primary Care Unavailable PROVIDER, UNKNOWN Consulting Unavailable HILLS, GEREMIAS Attending Unavailable HILLS, GEREMIAS Admitting Unavailable HILLS, GEREMIAS Primary Care Unavailable HILLS, GEREMIAS Consulting Unavailable PROVIDER, UNKNOWN Consulting Unavailable CROPSEYVILLE, GEREMIAS Attending Unavailable CROPSEYVIL[place], GEREMIAS Admitting Unavailable HILLS, GEREMIAS Primary Care Unavailable HILLS, GEREMIAS Consulting Unavailable PROVIDER, UNKNOWN Consulting Unavailable Gilbert DRUPAL ARCHITECT-C, Melina Attending Provider Mando PA-C, Geremias Primary Care Provider [phone] Mando PA-C, Geremias Referring Provider Gilbert DRUPAL ARCHITECT-CMelina Referring Provider Mando PA-C, Geremias Primary Care Provider [phone] Gilbert DRUPAL ARCHITECT-C, Melina Attending Provider Mando PA-C, Geremias Referring Provider Arimo PA, Geremias Referring Unavailable [facility] Unavailable Gilbert DRUPAL ARCHITECT, Melina Attending Unavailable [facility] Unavailable Gilbert DRUPAL ARCHITECT, Melina Attending Unavailable Gilbert DRUPAL ARCHITECT, Melnia Referring Unavailable [facility] Unavailable Gilbert DRUPAL ARCHITECT, Melina Attending Unavailable Gilbert DRUPAL ARCHITECT, Melina Referring Unavailable [facility] Unavailable [facility] Referring Unavailable Gilbert DRUPAL ARCHITECT, Melina Attending Unavailable [facility] Unavailable [facility] Referring Unavailable Gilbert DRUPAL ARCHITECT, Melina Attending Unavailable Medications Current Medications Medication Drug Class(es) Dates Sig (Normalized) Sig (Original) [id number] 200 actuat albuterol 0.09 mg/actuat metered dose inhaler (2 sources) beta2-Adrenergic Agonist Start: 06-05-2024 Albuterol Sulfate (Ventolin Hfa) 90 mcg/actuation HFA aerosol inhaler Active 2 NMA INHALATION Q4H as needed for shortness of breath or wheezing 18 11 June 05, 2024 12:00am alendronic acid 70 mg oral tablet (2 sources) Bisphosphonate Start: 06-05-2024 take 1 tablet by mouth every week Alendronate 70 mg tablet Active 70 mg PO EVERY WEEK June 05, 2024 12:00am fexofenadine hydrochloride 180 mg oral tablet (2 sources) Histamine-1 Receptor Antagonist Start: 06-05-2024 take 1 tablet by mouth every twenty-four hours Fexofenadine (Rossana Allergy) 180 mg tablet Active 180 mg PO Q24H June 05, 2024 12:00am fluticasone propionate 0.05 mg/actuat metered dose nasal spray (4 sources) Corticosteroid Start: 06-05-2024 End: 07-28-2024 Fluticasone Propionate 50 mcg/actuation spray,suspension Active 2 NMA INTRANASAL DAILY 16 3 July 28, 2024 1:41pm Asthma Unspecified asthma, uncomplicated 12 hr guaiFENesin 1200 mg extended release oral tablet (2 sources) Start: 07-28-2024 take 1 tablet by mouth every twelve hours Guaifenesin 1,200 mg tablet extended release 12hr Active 1200 mg PO Q12H 60 6 July 28, 2024 12:00am Ground glass opacity present on imaging of lung Other nonspecific abnormal finding of lung field levothyroxine sodium 0.15 mg oral tablet (2 sources) l-Thyroxine Start: 06-05-2024 take 1 tablet by mouth once daily Levothyroxine 150 mcg tablet Active 150 ug PO daily June 05, 2024 12:00am metroNIDAZOLE (2 sources) Nitroimidazole Antimicrobial Start: 07-28-2024 Metronidazole 1 % gel Active TOPICAL daily July 28, 2024 12:00am Problems Active Problems Problem Classification Problem Date Documented Da te Episodic/Chronic Asthma (1 source) Unspecified asthma, uncomplicated; Translations: [Unspecified asthma, uncomplicated] Onset: 07-28-2024 Chronic Disorders of lipid metabolism (2 sources) Hyperlipidemia, unspecified; Translations: [Hyperlipidemia, unspecified] Onset: 01-09-2024 Chronic Osteoporosis (2 sources) Senile osteoporosis; Translations: [Age-related osteoporosis without current pathological fracture] 06-05-2024 Chronic Other lower respiratory disease (5 sources) Other nonspecific abnormal finding of lung field; Translations: [Ground glass opacity present on imaging of lung] Onset: 10-12-2024 07-28-2024 Episodic Other upper respiratory disease (3 sources) Seasonal allergy; Translations: [Other seasonal allergic rhinitis] 06-05-2024 Chronic Substance-related disorders (4 sources) Cigarette smoker ; Translations: [Nicotine dependence, cigarettes, uncomplicated] Onset: 06-11-2024 06-05-2024 Chronic Thyroid disorders (5 sources) Hypothyroidism, unspecified; Translations: [Hyperthyroidism] Onset: 03-14-2023 06-05-2024 Chronic Past or Other Problems Problem Classification Problem Date Documented Da te Episodic/Chronic Other lower respiratory disease (5 sources) Chronic cough; Translations: [Chronic cough] Onset: 07-28-2024 06-05-2024 Episodic Other screening for suspected conditions (not mental disorders or infectious disease) (3 sources) Encounter for screening for diabetes mellitus; Translations: [Encounter for screening for malignant neoplasm of respiratory organs] Onset: 01-09-2024 Episodic Results Test Name Value Interpretation Reference Range Facility Chest without Contraston Chest without Contrast [facility] Imaging Services [address] [place] [address] Chest without Contrast MR#: [id number] Acct: [id number] Name: SOURAV HALE Rep #: [id number] : 1960 F 64 From: Ever banuelos MD PCP: Geremias Gilmore PA-C Status: REG CLI Study: Chest without Contrast Date of Exam: 10/05/24 Exam# [id number] Ordering Dr: Melina Hunt NP PROCEDURE: CHEST WITHOUT CONTRAST 10/05/2024 REASON FOR EXAM: GROUND GLASS Patient has a 1 year history of cough and shortness of breath. TECHNIQUE: Chest CT without contrast. Coronal and Sagittal reconstruction series were provided. One or more dose reduction techniques were used (e.g., Automated exposure control, adjustment of the mA and/or kV according to patient size, use of iterative reconstruction technique RADIATION DOSE SUMMARY: CTDlvol: 8.06 mGy DLP: 276.04 mGycm COMPARISON: Prior study dated July 01, 2024. FINDINGS: Hardware: None Lymph nodes: Small benign-appearing bilateral axillary lymph nodes. Heart and Vasculature: Atherosclerotic calcification of the aortic arch. The heart is nonenlarged. Coronary Artery Calcifications: Present Lungs and Airways: Minimal increased linear markings at the lung bases suggestive of scarring. Subpleural blebs are seen in the anterior aspect of both upper lobes suggestive of scarring. No focal infiltrate is seen. Calcified granuloma in the right lower lobe. Pleura: No pleural effusion. Upper Abdomen: Stable cyst in the left lobe of the liver. Bones: Degenerative changes of the thoracic spine. CT/Chest without Contrast IMPRESSION: Coronary artery calcification (CAC) is is present Scarring as described. Stable small mediastinal and axillary lymph nodes. Reading Location: [id number] CC: VIET Hunt; ANGELA Gilmore Greenhouse Technician: Signed Normal [facility] Pulmonary Visit Reporton Pulmonary Visit Report [facility] Pulmonary Medicine of [address] [place] [address] OFFICE VISIT Date of Service: 07/28/24 MR#: [id number] Acct: [id number] Name: SOURAV HALE Rep #: [id number] : 1960 Provider: VIET Hunt Age/Sex: 63/F Location[place] [facility] [place] Status: Signed Assessment and Plan Assessment and [...] Additional Comments: This note was generated with [employer] dictation software. It may contain incorrect words, [...] 1 pack/day. She previously followed with a cooker sulfite for nodules, however this last occurred back [...] air Intake Visit Reasons: 1 M FU [employer] Required: No DME Vendor: N/a Accompanied by: [...] istory fe (more content not included)... Normal [facility] Low Dose CT Lung Screeningon 07-01-[address] Lung Screening [facility] Imaging Services [address] [place] [place], [place] [address] Low Dose CT Lung Screening MR#: [id number] Acct: [id number] Name: SOURAV HALE Rep #: [id number] : 1960 F 63 From: Jordan Gou MD PCP: Geremias Gilmore PA-C Status: REG CLI Study: Low Dose CT Lung Screening Date of Exam: 07/01 Exam# [id number] Ordering Dr: Melina Hunt NP DRUPAL ARCHITECT-C PROCEDURE: LOW DOSE CT LUNG SCREENING (CTLUNGSCREEN), [...] 5. Additional description as above. Recommendations per [employer]. Lung CT Screening Reporting and Data System (Lung-RADS) v. 2021 Reading Location: [id number] CC: VIET Hunt; ANGELA Gilmore Greenhouse Technician: Signed Normal [facility] Pulmonary Visit Reporton Pulmonary Visit Report [facility] Pulmonary Medicine of [address] [place] [address] OFFICE VISIT Date of Service: 06/05/24 MR#: [id number] Acct: [id number] Name: SOURAV HALE Rep #: [id number] : 1960 Provider: VIET Hunt Age/Sex: 63/F Location: [facility] [place]W Status: Signed Assessment and Plan Assessment and Plan (1) Chronic cough: Status: Chronic Plan: Of unclear etiology. NIOX procedure performed in the office today, returned within normal limits. This indicates that the patient does not require a steroid inhaler or systemic corticosteroids. She does report a postnasal drip, therefore we will try to control the postnasal drip with an fldh-xys-rjngbxt nasal steroid. I have asked her to [...] 1 pack/day. She previously followed with a cooker sulfite for nodules, however this last occurred back in 2013. Pulmonary function test completed at [facility] in March was normal. 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 Past medical family history significant for: Mother is currently living at the age of 85 and has leukemia. Father in 2015 due to kidney cancer. She has 4 [...] room air Intake Visit Reasons: CHRONIC COUGH [employer] Required: No Accompanied by: Self Allergies No [...] (Updated 06/05/24 @ 09:47 by Melina Hunt DRUPAL ARCHITECT, DRUPAL ARCHITECT-C) Age related osteoporosis Hyperthyroidism Seasonal allergies Surgical History (Updated 06/05/24 @ 09:22 by Shanon Quiles LPN) H/O tubal ligation Family History (Updated 06/05/24 @ 09:24 by Shanon Quiles LPN) Mother Leukemia Fat (more content not included)... Normal [facility] PULMONARY FUNCTION STUDYon 0 03-22-2024 PULMONARY FUNCTION STUDY [facility] PULMONARY FUNCTION TEST NAME ACCOUNT SEX AGE VISIT DATE ROOM PT MEDICAL REC. # NUMBER TYPE SOURAV HALE [id number] F 63 03/05/2024 2 03645 DATE OF : 1960 DICTATING PHYSICIAN: Jeb Berrios The FEV1 is 2.46 liters or 109% of predicted with a ratio of 83%. Total lung capacity is normal. The RV/TLC ratio and diffusion capacity are normal. IMPRESSION: This is a normal study. There is no evidence of obstruction or restriction or airway reactivity. Dictated By: Jeb Berrios MD 03/11/24 13:22 JOB #: [id number] Transcribed By: am 03/11/24 13:34 Electronically signed by: Iva Berrios M.D. 03/22/24 22:21 SOURAV HALE Page 1 of 1 Normal [facility] CMP with eGFRon 01-24-2024 AGE 63 years Normal [facility] Comment on above: Performed By: #### 2 17419 #### [address] [address] Albumin [Mass/Vol] 4.1 g/dL Normal 3.4 - 5.0 [facility] Comment on above: Performed By: #### 2 66740 #### [facility],[address] [place] [address] Albumin/Globulin [Mass ratio] 1.2 {ratio} Normal 0.9 - 1.6 [facility] Comment on above: Performed By: #### 2 30081 #### [address] [address] ALK PHOS 92 U/L Normal 46 - 116 [facility] Comment on above: Performed By: #### 2 88261 #### [facility],[address] [place] [address] ALT [Catalytic activity/Vol] 17 U/L Normal 16 - 63 [facility] Comment on above: Performed By: #### 2 68523 #### [address] [address] Anion gap [Moles/Vol] 12 mmol/L Normal 10 - 20 [facility] Comment on above: Performed By: #### 2 80291 #### [address] [address] AST [Catalytic activity/Vol] 21 U/L Normal 13 - 39 [facility] Comment on above: Performed By: #### 2 62824 #### [facility],[address] [place], [place] [address] B/C RATIO 18 ratio Normal 0 - 30 [facility] Comment on above: Performed By: #### 2 25467 #### [facility],[address] [place] [address] Bilirubin [Mass/Vol] 0.4 mg/dL Normal 0.2 - 1.0 [facility] Comment on above: Performed By: #### 2 07703 #### [facility],[address] [place], [place] [address] Calcium [Mass/Vol] 9.2 mg/dL Normal 8.5 - 10.1 [facility] Comment on above: Performed By: #### 2 75850 #### [facility],[address] [place], [place] [address] Chloride [Moles/Vol] 100 mmol/L Normal 98 - 107 [facility] Comment on above: Performed By: #### 2 81949 #### [facility],[address] [place] [address] CMP with eGFR Normal [facility] Comment on above: Result Comment: COMP REHENSIVE METABOLIC PANEL Performed By: #### 2 69870 #### [facility],[address] [place] [address] CO2 [Moles/Vol] 29.5 mmol/L Normal 21.0 - 32.0 [facility] Comment on above: Performed By: #### 2 64424 #### [facility],[address] [place] [address] Creatinine [Mass/Vol] 0.67 mg/dL Normal 0.55 - 1.02 [facility] Comment on above: Performed By: #### 2 40330 #### [facility],[address] [place] [address] GFR/1.73 sq M.predicted among non-blacks MDRD (S/P/Bld) [Vol rate/Area] mL/min/{1.73_m2} Normal 60 - 999 [facility] Comment on above: Performed By: #### 2 37609 #### [facility],[address] [place] [address] Result Comment: ACCO RDING TO THE NATIONAL KIDNEY DISEASE EDUCATION PROGRAM(NKDE), A NORMAL eGFR IS A VALUE GREATER THAN OR EQUAL TO 60 ML/MIN/1.73 SQ METERS. CHRONIC KIDNEY DISEASE: <60mL/MIN/1.73 SQ METERS KIDNEY FAILURE: <15mL/MIN/1.73 SQ METERS THIS TEST SHOULD ONLY BE USED FOR PATIENTS 18 YEARS OF AGE AND OLDER. Globulin (S) [Mass/Vol] 3.3 g/dL Normal 1.5 - 3.8 [facility] Comment on above: Performed By: #### 2 65726 #### [facility],[address] [place] [address] Glucose [Mass/Vol] 100 mg/dL Normal 74 - 106 [facility] Comment on above: Performed By: #### 2 20567 #### [facility],[address] [place] [address] Potassium [Moles/Vol] 4.1 mmol/L Normal 3.5 - 5.1 [facility] Comment on above: Performed By: #### 2 33818 #### [facility],[address] [place] [address] Protein [Mass/Vol] 7.4 g/dL Normal 6.4 - 8.2 [facility] Comment on above: Performed By: #### 2 57913 #### [facility],[address] [place] [address] Sodium [Moles/Vol] 137 mmol/L Normal 136 - 145 [facility] Comment on above: Performed By: #### 2 58727 #### [facility] [place] [address] Urea nitrogen [Mass/Vol] 12 mg/dL Normal 7 - 18 [facility] Comment on above: Performed By: #### 2 85389 #### [facility],[address] [place] [address] LIPID PROFILEon 01-24-2024 Cholesterol [Mass/Vol] 244 mg/dL High 0 - 240 [facility] Comment on above: Performed By: #### 2 66275 #### [facility],[address] [place] [address] Cholesterol in HDL [Mass/Vol] 58 mg/dL Normal 40 - 60 [facility] Comment on above: Performed By: #### 2 38506 #### [facility],[address] [place] [address] Cholesterol in LDL [Mass/Vol] 169 mg/dL High 0 - 129 [facility] Comment on above: Performed By: #### 2 95012 #### [facility],[address] [place] [address] Cholesterol.total/C holesterol in HDL [Mass ratio] 4.2 {ratio} Normal 0.0 - 5.0 [facility] Comment on above: Performed By: #### 2 54611 #### [facility],[address] [place] [address] Lipid 1996 panel Normal [facility] Comment on above: Result Comment: LIPI D PROFILE Performed By: #### 2 56779 #### [facility],[address] [place] [address] Triglyceride [Mass/Vol] 87 mg/dL Normal 0 - 150 [facility] Comment on above: Performed By: #### 2 31668 #### [facility],[address] [place] [address] TSHon 01-24-2024 TSH Qn 2.86 m[IU]/L Normal 0.35 - 3.74 [facility] Comment on above: Performed By: #### 2 24470 #### [facility],[address] [place], [place] [address] 3D MAMM BILAT SCREENon 01-08 3D MAMM BILAT SCREEN [place] [id number] Patient: SOURAV HALE Phone#: : 1960 Age: 63 Gender: F Pt. Type: Out Account: [id number] Location: [facility] Ordering: [facility] Exam Date: 01/09/2024/11:56 Family Phys: Charge Code: [id number] Physician: Metcalfe Order #: [id number] Dose#: PROCEDURE: BILATERAL SCREENING BREAST TOMOSYNTHESIS MAMMOGRAM WITH CAD COMPARISON: [facility], 3D BILAT SCREEN, 06/07/2021, 15:04. [facility], 3D BILAT SCREEN, 06/29/2022, 15:02. INDICATIONS: Screening. [...] Lawton MD on 01/09/2024 at 17:38 Normal [facility] BONE DENSITY STUDYon 024 Bone density scan [place] [address] Patient: SOURAV HALE Phone#: : 1960 Age: 63 Gender: F Pt. Type: Out Account: [id number] Location: [facility] Ordering: [employer] Exam Date: 01/09/2024/12:07 Family Phys: Charge Code: [id number] Physician: Metcalfe Order #: [id number] Dose#: PROCEDURE: BONE DENSITY STUDY TECHNIQUE: Lumbar vertebral and proximal femoral dual-energy X-ray absorptiometry (DXA) was performed on a central Marquee device. SPINE ANALYSIS RESULTS: Average lumbar bone [...] 63 Gender: F Pt. Type: Out Account: [id number] Location: [facility] Exam Date: 01/09/2024/12:07 Family Phys: Charge Code: [id number] Physician: Metcalfe Order #: [id number] Dose#: Approved by: Lyndsay Mccann MD on 01/09/2024 at 13:08 Normal [facility] Comprehensive metabolic 2000 panelon 11-28-2021 Albumin [Mass/Vol] 4.4 g/dL Normal 3.9-4.9 [facility] Comment on above: Order Comment: Shandra avery Type: BLOOD SPECIMEN Ordering Facility: [facility] Address: [address] [place] [address] Performed By: #### 2 4323-8 #### [facility] CLIA [id number] [address] [place] [address] [place] ALP [Catalytic activity/Vol] 90 U/L Normal 34-123 [facility] Comment on above: Order Comment: Shandra avery Type: BLOOD SPECIMEN Ordering Facility: [facility] Address: [address] [place] [address] Performed By: #### 2 4323-8 #### [facility] CLIA [id number] [address] [place] [address] [place] ALT [Catalytic activity/Vol] 17 U/L Normal 7-38 [facility] Comment on above: Order Comment: Shandra avery Type: BLOOD SPECIMEN Ordering Facility: [facility] Address: [address] [place] [address] Performed By: #### 2 4323-8 #### [facility] CLIA [id number] [address] [place] [id number] [place] Anion gap [Moles/Vol] 16 mmol/L Normal 9-18 [facility] Comment on above: Order Comment: Speci men Type: BLOOD SPECIMEN Ordering Facility: [facility] Address: [address] [place] [address] Performed By: #### 2 4323-8 #### [facility] CLIA [id number] [address] [place] [address] [place] AST [Catalytic activity/Vol] 19 U/L Normal 13-35 [facility] Comment on above: Order Comment: Speci men Type: BLOOD SPECIMEN Ordering Facility: [facility] Address: [address] [place] [address] Performed By: #### 2 4323-8 #### [facility] CLIA [id number] [address] [place] [address] [place] Bilirubin [Mass/Vol] 0.4 mg/dL Normal 0.2-1.3 [facility] Comment on above: Order Comment: Speci men Type: BLOOD SPECIMEN Ordering Facility: [facility] Address: [address] [place] [address] Performed By: #### 2 4323-8 #### [facility] CLIA [id number] [address] [place] [address] [place] Calcium [Mass/Vol] 9.2 mg/dL Normal 8.5-10.2 [facility] Comment on above: Order Comment: Speci men Type: BLOOD SPECIMEN Ordering Facility: [facility] Address: [address] [place] [address] Performed By: #### 2 4323-8 #### [facility] CLIA [id number] [address] [place] [id number] [place] Chloride [Moles/Vol] 99 mmol/L Normal 97-105 [facility] Comment on above: Order Comment: Speci men Type: BLOOD SPECIMEN Ordering Facility: [facility] Address: [address] [place] [address] Performed By: #### 2 4323-8 #### [facility] CLIA [id number] [address] [place] [address] [place] CO2 [Moles/Vol] 22 mmol/L Normal 22-30 [facility] Comment on above: Order Comment: Speci men Type: BLOOD SPECIMEN Ordering Facility: [facility] Address: [address] [place] [address] Performed By: #### 2 4323-8 #### [facility] CLIA [id number] [address] [place] [address] [place] Creatinine [Mass/Vol] 0.62 mg/dL Normal 0.58-0.96 [facility] Comment on above: Order Comment: Speci men Type: BLOOD SPECIMEN Ordering Facility: [facility] [place] [address] Performed By: #### 2 4323-8 #### [facility] CLIA [id number] [address] [place] [address] [place] ESTIMATED GLOMERULAR FILTRATION RATE 102 mL/min/1.73m??? Normal >=60 [facility] Comment on above: Order Comment: Speci men Type: BLOOD SPECIMEN Ordering Facility: [facility] Address: [address] [place] [address] Result Comment: Aurea mated Glomerular Filtration Rate [...] GFR. Performed By: #### 2 4323-8 #### [facility] CLIA [id number] [address] [place] [address] [place] Glucose [Mass/Vol] 99 mg/dL Normal 74-99 [facility] Comment on above: Order Comment: Shandra avery Type: BLOOD SPECIMEN Ordering Facility: [facility] Address: [facility] [place] [address] Result Comment: The [place] [employer] (ADA) provides guidance for cutoff [...] Standards of Medical Care in Diabetes 2016, [place] [employer]. Diabetes Care. 2016.39(Suppl 1). Performed By: #### 2 4323-8 #### [facility] CLIA [id number] [address] [place] [address] [place] Potassium [Moles/Vol] 4.0 mmol/L Normal 3.7-5.1 [facility] Comment on above: Order Comment: Shandra avery Type: BLOOD SPECIMEN Ordering Facility: [facility] Address: [place] [address] Performed By: #### 2 4323-8 #### [facility] CLIA [id number] [address] [id number] [place] Protein [Mass/Vol] 6.8 g/dL Normal 6.3-8.0 [facility] Comment on above: Order Comment: Shandra avery Type: BLOOD SPECIMEN Ordering Facility: [facility] Address: [facility] [place] [address] Performed By: #### 2 4323-8 #### [facility] CLIA [id number] [address] [address] [place] Sodium [Moles/Vol] 137 mmol/L Normal 136-144 [facility] Comment on above: Order Comment: Speci men Type: BLOOD SPECIMEN Ordering Facility: [facility] Address: [place] [address] Performed By: #### 2 4323-8 #### [facility] CLIA [id number] [address] [place] [address] Urea nitrogen [Mass/Vol] 9 mg/dL Normal 7-21 [facility] Comment on above: Order Comment: Speci men Type: BLOOD SPECIMEN Ordering Facility: [facility] Address: [place] [address] Performed By: #### 2 4323-8 #### [facility] CLIA [id number] [address] [place] [address] [place] [employer] Cyt[employer] Reporton 2021 [employer] Cytology Report . Pathology Reports Accession: Collected Date/Time: Received Date/Time: Pathologist: [id number] 06/05/2021 16:02 EDT 06/05/2021 18:00 EDT [employer] Report SPECIMEN: Specimen Description: Liquid Prep w/ HPV Specimen: Cervical Screening or Diagnostic: Screening RELEVANT HISTORY: LMP: NOT GIVEN [id number] SPECIMEN ADEQUACY: SATISFACTORY FOR EVALUATION ENDOCERVICAL/TRANSFOR MATIONAL [...] in conjunction with clinical information derived from [facility] diagnostic and screening tests, physical examinations and full medical history in accordance with appropriate patient management procedures. NOTE: A negative result does not preclude the presence of HPV infection because results depend on adequate specimen collection, absence of inhibitors and sufficient DNA to be detected. COMMENT: This Pap Test was successfully processed and evaluated with the assistance of the Hologic Thin Prep Test Imaging System. Electronically Signed by Pathology report verified by [facility] Screened by: [place] Electronically signed by Urszula HOPKINS (ASCP) Sign-Out Date: 06/09/2021 15:18 Performing Lab: [facility], [address] [place] [address] States Disclaimer The Pap test is a screening test for cervical cancer. As evidenced by published data, it is sub ject to both inherent false negative and false positive results. Your patient's results should be interpreted in context with pertinent clinical history including gynecological examination. Normal [facility] ([place] HPVon 06-09-2021 [facility] Comment on above: Order Comment: Order placed by AP_HPV_ORDER rule from [id number] Result Comment: High Risk HPV Typing: NEGATIVE [...] and sufficient DNA to be detected. See Inter HPVN Performed By: #### H PV #### [place] [address] HPV Source Cervix Normal [facility] ([place]) Comment on above: Order Comment: Order placed by AP_HPV_ORDER rule from [id number] Performed By: #### H PV #### [place] [address] TSHon 10-05-2020 TSH Qn 0.21 m[IU]/L Low 0.40-4.50 [facility] Comment on above: Performed By: #### 8 99 #### [facility] [address], [address] [place] [address] [employer]: Chadd Vargas MD Vital Signs Date Time Vital Sign Value Performing Clinician Reymundo richmondameena 07-28-2024 08:27-0400 Body height 157.48 cm [employer] PA-C Work Phone: [facility] 07-28-2024 08:27-0400 Body mass index (BMI) [Ratio] 29 kg/m2 [employer] PA-C Work Phone: [facility] 07-28-2024 08:27-0400 Body temperature 97.5 [degF] [employer] PA-C Work Phone: [facility] 07-28-2024 08:27-0400 Body weight 72.12 kg [employer] PA-C Work Phone: [facility] 07-28-2024 08:27-0400 Diastolic blood pressure 82 mm[Hg] [employer] PA-C Work Phone: [facility] 07-28-2024 08:27-0400 Heart rate 94 /min [employer] PA-C Work Phone: [facility] 07-28-2024 08:27-0400 Respiratory rate 16 /min [employer] PA-C Work Phone: [facility] 07-28-2024 08:27-0400 SaO2% (BldA) [Mass fraction] 98 % [employer] PA-C Work Phone: [facility] 07-28-2024 08:27-0400 Systolic blood pressure 139 mm[Hg] [employer] PA-C Work Phone: [facility] 06-05-2024 09:14-0400 Body mass index (BMI) [Ratio] 29.2 kg/m2 [employer] PA-C Work Phone: [facility] 06-05-2024 09:14-0400 Body temperature 97.5 [degF] Geremias Qingdao [employer] PA-C Work Phone: [facility] 06-05-2024 09:14-0400 Body weight 72.57 kg Geremias Qingdao [employer] PA-C Work Phone: [facility] 06-05-2024 09:14-0400 Diastolic blood pressure 85 mm[Hg] Geremias Qingdao [employer] PA-C Work Phone: [facility] 06-05-2024 09:14-0400 Heart rate 89 /min Geremias Hills PA-C Work Phone: [facility] 06-05-2024 09:14-0400 Respiratory rate 18 /min Geremias Qingdao [employer] PA-C Work Phone: [facility] 06-05-2024 09:14-0400 SaO2% (BldA) [Mass fraction] 96 % Geremias Arimo PA-C Work Phone: [facility] 06-05-2024 09:14-0400 Systolic blood pressure 155 mm[Hg] [facility] PA-C Work Phone: [facility] Encounters Encounter Date Encounter Type Care Provider Facility Start: 01-13-2025 ambulatory Geremias Hills PA Facil ity:[facility] Start: 10-05-2024 End: 10-05-2024 ambulatory [employer] PA-C Work Phone: -[facility] Start: 10-05-2024 End: 10-05-2024 Patient encounter procedure Melina Hunt DRUPAL ARCHITECT-C -[facility] Work Phone: Start: 10-05-2024 End: 10-05-[facility] Start: 07-28-2024 End: 07-28-2024 Patient encounter procedure Melina Hunt DRUPAL ARCHITECT-C -[facility] Work Phone: Start: 07-28-2024 End: 07-28-2024 ambulatory Geremias Arimo PA-C Work Phone: [facility] Work Phone: Start: 07-01-2024 End: 07-01-2024 Patient encounter procedure Melina SMITHC -[facility] Work Phone: Start: 07-01-2024 End: 07-01-2024 ambulatory Geremias Arimo KIAN Facility:[facility] Start: 06-05-2024 End: 06-05-2024 Patient encounter procedure Melina SMITHC -[facility] Work Phone: Start: 06-05-2024 End: 06-05-2024 ambulatory [facility] Facility:[facility] Start: 03-05-2024 End: 03-05-[address] [facility] Start: 01-24-2024 End: 01-24-[address] [facility] Start: 01-09-2024 End: 01-09-[address] [facility] Start: 03-14-2023 End: 03-14-[address] [facility] Start: 01-28-2023 End: 01-28-[address] [facility] Procedures Date Procedure Procedure Detail Performing Clinician Start: 10-05-2024 CT of chest without contrast Geremias Gilmore PA-C Work Phone: Start: 07-01-2024 CT of chest Geremias pandya PA-C Work Phone: Plan of Treatment Date Care Activity Detail Author CT Chest WO contrast [facility] Payers Date Payer Category Payer Unknown [id number] 2024 Self-pay 2024 Unknown [id number] 1960 Unknown [id number] 2.16.8 [id number] 1960 Unknown [id number] 2.16.8 [id number] 1960 Unknown [id number] 2.16.8 [id number] 1960 Unknown [id number] 2.16.8 [id number] 1960 Unknown [id number] 2.16.8 [id number] 1960 Unknown [id number] 2.16.8 [id number] 1960 Unknown [id number] 2.16.8 [id number] Unknown Unknown [id number] 2.16.8 [id number] Unknown [id number] 2.16.8 [id number] Unknown [id number] 2.16.8 [id number] Unknown [id number] 2.16.8 [id number] Unknown [id number] 2.16.8 [id number] Social History Date Type Detail Facility Start: 06-05-2024 [facility] Start: 1960 Sex Assigned At Female [facility] Gender Identity Identifies as fe male gender (finding) [facility] Radiology Diagnostic study note 10-05-2024 Note Date & Type Note Facility 10-05-2024 Radiology Diagnostic study note [facility] Imaging Services [address] [place] [address] Chest without Contrast MR#: [id number] Acct: [id number] Name: SOURAV HALE Rep #: [id number] : 1960 F 64 From: Sabino Washington MD PCP: Geremias Gilmore PA-C Status: REG C LI Study:Chest without Contrast Date of Exam: 10/05/24 Exam# [id number] Ordering Dr: Allie Hunt NP DRUPAL ARCHITECT-C PROCEDURE: CHEST WITHOUT CONTRAST 10/05/2024 REASON FOR EXAM: GROUND GLASS Patient has a 1 year history of cough and shortness of breath. TECHNIQUE: Chest CT without contrast. Coronal and Sagittal reconstruction series were provided. One or more dose reduction techniques were used (e.g., Automated exposure control, adjustment of the mA and/or kV according to patient size, use of iterative reconstruction technique RADIATION DOSE SUMMARY: CTDlvol: 8.06 mGy DLP: 276.04 mGycm COMPARISON: Prior study dated July 01, 2024. FINDINGS: Hardware: None Lymph nodes: Small benign-appearing bilateral axillary lymph nodes. Heart and Vasculature: Atherosclerotic calcification of the aortic arch. The heart is nonenlarged. Coronary Artery Calcifications: Present Lungs and Airways: Minimal increased linear markings at the lung bases suggestive of scarring. Subpleural blebs are seen in the anterior aspect of both upper lobes suggestive of scarring. No focal infiltrateis seen. Calcified granuloma in the right lower lobe. Pleura: No pleural effusion. Upper Abdomen: Stable cyst in the left lobe of the liver. Bones: Degenerative changes of the thoracic spine. CT/Chest without Contrast IMPRESSION: Coronary artery calcification (CAC) is is present Scarring as described. Stable small mediastinal and axillary lymph nodes. Reading Location: [id number] CC: VIET Hunt; ANGELA Gilmore ~ Greenhouse Technician: Signed [facility] Evaluation note 07-28-2024 Note Date & Type Note Facility 07-28-2024 Evaluation note Diagnosis Onset Date Resolution Ground glass opacity present on imaging of lung acute July 28, 2024 1 :07pm Seasonal allergies acute July 282024 1:07pm Chronic cough chronic July 28, 1:07pm [facility] Work Phone: Evaluation note 06-05-2024 Note Date & Type Note Facility 06-05-2024 Evaluation note Diagnosis Onset Date Resolution Chronic cough chronic June 05, 2024 9:13am Smoking greater than 40 pack years chronic June 05, 2024 9:13am Ground glass opacity present on imaging of lung acute July 28, 2024 1 :07pm [facility] Work Phone: Reason for referral (narrative) Note Date & Type Note Facility Reason for referral (narrative) No reason for referral information available [facility] Work Phone: Summary Purpose Family History [...] imaging of lung July 28, 2024 1:07pm Chief Complaint Admit Date SMOKER July 01, 2024 3:3 2pm 1 M FU July 28, 2024 1:07p m ABNORMAL SCAN October 05, 2024 7:1 5am Reason for Visit Admit Date Ground glass opacity present on imaging of lung July 28, 2024 1:07pm Seasonal allergies July 28, 2024 1:07p m Chronic cough July 28, 2024 1:07p m Additional Source Comments INFORMATION SOURCE (unrecogn ized section and content) DATE CREATED AUTHOR 01/01/2021 [facility] DATE CREATED AUTHOR AUTHOR'S ORGANIZ ATION 06/12/2021 [facility] ([place]) DATE CREATED AUTHOR AUTHOR'S ORGANIZ ATION 12/04/2021 [facility] DATE CREATED AUTHOR AUTHOR'S ORGANIZ ATION 01/10/2024 [facility] DATE CREATED AUTHOR AUTHOR'S ORGANIZ ATION 03/24/2024 [facility] DATE CREATED AUTHOR AUTHOR'S ORGANIZ ATION 01/10/2025 [facility] Care Teams (unrecognized sec tion and content) Team Status: Active Member Role Status Dates Geremias Gilmore PA, PA-C Primary Care Provider Active Team Status: Inactive Member Role Status Dates Melina Hunt DRUPAL ARCHITECT, DRUPAL ARCHITECT-C Attending Provider Active Start: June 05, 2024 [...] 2024 End: July 01, 2024 Melina Hunt DRUPAL ARCHITECT, DRUPAL ARCHITECT-C Attending Provider Active Start: July 01, 2024 End: July 01, 2024 Melina Hunt DRUPAL ARCHITECT, DRUPAL ARCHITECT-C Referring Provider Active Start: July 01, 2024 End: July 01, 2024 Team Status: Inactive Member Role Status Dates Geremias Gilmore PA, PA-C Primary Care Provider Active Start: July 28, 2024 End: July 28, 2024 Geremiasniya Gilmore PA, PA-C Referring Provider Active Start: July 28, 2024 End: July 28, 2024 Melina Hunt DRUPAL ARCHITECT, DRUPAL ARCHITECT-C Attending Provider Active Start: July 28, 2024 End: July 28, 2024 Team Status: Active Member Role/Relationship Status Dates Geremias Gilmore PA, PA-C Primary Care Provider Active Team Status: Inactive Member Role/Relationship Status Dates Geremias Gilmore PA, PA-C Primary Care Provider Active Start: July 01, 2024 End: July 01, 2024 Melina Hunt DRUPAL ARCHITECT, DRUPAL ARCHITECT-C Attending Provider Active Start: July 01, 2024 End: July 01, 2024 Melina Hunt DRUPAL ARCHITECT, DRUPAL ARCHITECT-C Referring Provider Active Start: July 01, 2024 End: July 01, 2024 Team Status: Inactive Member Role/Relationship Status Dates Geremias Gilmore PA, PA-C Primary Care Provider Active Start: July 28, 2024 End: July 28, 2024 Geremiasniya Gilmore PA, PA-C Referring Provider Active Start: July 28, 2024 End: July 28, 2024 Melina Hunt DRUPAL ARCHITECT, DRUPAL ARCHITECT-C Attending Provider Active Start: July 28, 2024 End: July 28, 2024 Team Status: Inactive Member Role/Relationship Status Dates Geremiasskylar LANGSTON PA-C Primary Care Provider Active Start: October 05, 2024 End: October 05, 2024 Melina Hunt NP, NP-C Attending Provider Active Start: October 05, 2024 End: October 05, 2024 VIET Gupta NP Referring Provider Active Start: October 05, 2024 End: October 05, 2024 Goals (unrecognized section and content) Goals may be documented in a n alternate sectionGoals may be documented in an alternate section FOR RECORDS PERTAINING TO PATIENTS [...] BE BASED ON THE PRIMARY CLINICAL RECORDS. [facility] [employer] provides no warranty or guarantee of the accuracy or completeness of information in this document.
[2025-01-18 08:29] LABS: AST(SGOT) 23 U/L (<=31); Alanine Aminotransfer ALT/SGPT 16 U/L (<=34); Albumin, Serum 4.5 g/dL (3.4-4.8); Alkaline Phosphatase 81 U/L (35-104); Anion Gap 11 (5-15); BUN 9 mg/dL (4-19); BUN/Creat Ratio 13.7 RATIO (10-20); Calcium,Total 9.5 mg/dL (7.6-11.0); Carbon Dioxide 26.0 mmol/L (21.0-32.0); Chloride 98 mmol/L (98-108); Cholesterol 231 mg/dL (<=200); Globulin 2.7 g/dL (2.2-4.2); Glucose 102 mg/dL (70-99); Low Density Lipoprotein Calc. 155 mg/dL; Potassium 4.3 mmol/L (3.3-5.1); Triglycerides 85 mg/dL; Very Low Density Lipoprotein 17 mg/dL (5-40); cholesterol:hdl ratio screen 3.79
[2025-01-21 10:08] LABS: Bluegrass, Kentucky <0.10 kU/L (Class 0); Cat Hair/Dander, Standard <0.10 kU/L (Class 0); Dog Epithelia <0.10 kU/L (Class 0); Elm, American White <0.10 kU/L (Class 0); Oak, White <0.10 kU/L (Class 0); Plantain, English <0.10 kU/L (Class 0); Ragweed, Short/Common <0.10 kU/L (Class 0)
[2025-01-21 16:09] LABS: Aspirgillus flavus Negative (Neg:<1:1); Aspirgillus fumigatus Negative (Neg:<1:1); Aspirgillus niger Negative (Neg:<1:1)
== END | disposition home or self-care (01) ==
PROVIDERS: PCP Family Medicine; Referring Provider Nurse Practitioner Acute Care; Visit Provider Nurse Practitioner Acute Care
DX: E03.9 Hypothyroidism, unspecified (principal); E78.5 Hyperlipidemia, unspecified; J30.2 Other seasonal allergic rhinitis; Z79.899 Other long term (current) drug therapy
CPT/HCPCS: 36415; 80053; 80061; 82785; 84443; 85025; 86003; 86606